=== PATIENT | female | born 1970 | race Caucasian/White ===

== ENCOUNTER 2020-05-19 03:46 | Outpatient (CLI) | payer OTHER, SELFPAY ==
--- NOTE | 2020-05-19 | DI.MRI_ITS ---
EXAM: MR ANGIO NECK W CLINICAL HISTORY: ABNL AUDITORY PERCEPTION,H93.299,PULSATILE TINNITIS RT EAR,H93.A1. TECHNIQUE: Multiplanar multisequence MRI was performed. COMPARISON: No exams were available for comparison FINDINGS: MR examination of the cervical region was performed with contrast administration. The examination i s of somewhat limited technical quality. The left vertebral artery is nonvisualized. Right vertebra l appears intact to the level of the basilar artery. The common, internal, and external carotid monty uyen appear grossly intact bilaterally to the level of the cavernous ICA. IMPRESSION: Limited study, question absent or occluded left vertebral artery. Correlation with CT angiography rec ommended. DATA REPOSITORY:
--- NOTE | 2020-05-19 | DI.MRI_ITS ---
Out to the sylvian fissure branches. Anterior cerebral arteries are patent and there is no evidence of obvious aneurysm at the anterior communicating artery EXAM: MR ANGIO BRAIN WO CLINICAL HISTORY: ABNL AUDITORY PERCEPTION,H93.299,PULSATILE tinnitis rt ear,h93.a1 TECHNIQUE: [id number] sequence. No IV contrast. COMPARISON: No prior brain imaging studies available at the time of this interpretation. FINDINGS: Both internal carotid arteries are patent to the skull base-carotid canals. Intracavernous aspects o f both internal carotid arteries are patent. Supraclinoid aspects are patent and nonaneurysmal. Bot h middle cerebral arteries are patent out to the sylvian fissure branches. Both A1 segments are gee nt. Both anterior cerebral arteries are patent and there is no evidence of obvious aneurysm at the l evel of the anterior communicating artery. Posterior circulation: The basilar artery is somewhat dolichoectatic and formed predominately by the dominant right vertebral artery at the skull base. The left vertebral artery appears to terminate as the left posterior inferior cerebellar artery. The caliber of the basilar artery is within normal l imits. Distally it gives off patent bilateral superior cerebellar arteries and above this level term inates as patent bilateral posterior cerebral arteries. There is a thin posterior communicating monty ry on the right side of the [id number]. There is no evidence of aneurysm of the tip of the bas ilar artery nor elsewhere in the wwlcxl-ri-Onssae. Visualized ventricles exhibit normal size. No evidence of obvious vascular malformation. IMPRESSION: 1. Patent intracerebral arteries as described above. No evidence of intraluminal thrombus. No evide nce of obvious aneurysm. 2. Please note that this magnetic resonance angiography study is the study of the vessels only. Brai n parenchyma is not assessed DATA REPOSITORY:
[2020-05-19] MEDS: Gadoterate meglumine 20 ML VIAL 18 ML IVP (11:20)
== END 2020-05-19 04:06 ==
PROVIDERS: PCP Family Medicine; Visit Provider Otolaryngology Otolaryngology/Facial Plastic Surgery
DX: H93.299 Other abnormal auditory perceptions, unspecified ear (principal); H93.A1 Pulsatile tinnitus, right ear
CPT/HCPCS: 70544; 70548

== ENCOUNTER 2020-06-08 01:44 | Outpatient (CLI) | payer OTHER, SELFPAY ==
[2020-06-08] MEDS: Omnipaque 350 MG/ML 100 ML BTL IJ (14:46)
[2020-06-08] MEDS: Normal Saline Flush 10 ML SYR IVP (14:47)
[2020-06-08] MEDS: Normal Saline - Diluent 50 ML VIAL IV (14:47)
--- NOTE | 2020-06-08 14:47 | DI.CT_ITS ---
EXAM: CT CAROTID NECK CTA CLINICAL HISTORY: PULSATILE TINNITUS RT EAR,H93.A1 TECHNIQUE: COMPARISON: No exams were available for comparison FINDINGS: CT angiography of the cervical region was performed with bolus infusion of 85 cc Omnipaque 350. Visu alized lung apices are clear. Visualized pulmonary arterial circulation appears intact. There is no cervical mass or adenopathy. The tracheal laryngeal structures appear intact. Salivary glands are unremarkable. Visualized orbits are unremarkable. Visualized aortic arch and major branches are unremarkable. Common carotid arteries appear normal bilaterally. No dissection or stenosis. Internal and external carotid arteries appear normal bilaterally. Internal carotid arteries show no evidence of dissection or stenosis or aneurysm to the level of the cavernous sinuses. There is a right dominant vertebral circulation. Right and left vertebral arteries are unremarkable with no evidence of occlusion, stenosis or dissection. IMPRESSION: Normal CT angiography, cervical region. RADIATION DOSE DELIVERED: 320.26mGy.cm Total DLP
== END 2020-06-08 02:04 ==
PROVIDERS: PCP Family Medicine; Visit Provider Physician Assistant
DX: H93.A1 Pulsatile tinnitus, right ear (principal)
CPT/HCPCS: 70498; J3490